=== PATIENT | female | born 1995 | race Caucasian/White ===

== ENCOUNTER 2016-09-08 00:10 | Emergency (ER) | payer BC, OTHER ==
--- NOTE | 2016-09-08 00:15 | PDOC ---
History of Present Illness - General History Source: Significant Other Exam Limitations: Clinical Condition, Unresponsive - History of Present Illness Initial Comments: 09/08/16 00:24 The patient is a 20 year old female with no significant past medical history who presents to the ED BIBA for unresponsiveness prior to arrival. As per significant other, patient was in her usual state of health prior to having dinner. He reports patient passed out while having dinner. Boyfriend denies drug use and states patient did not ingest anything. Allergies: NKDA Social History: Denies drug use. Past Surgical History: None reported <Lorenza Adame - Last Filed: 09/08/16 04:01> - General History Source: Significant Other <Saulo Curry - Last Filed: 09/08/16 06:08> - General Stated Complaint: SYNCOPE Time Seen by Provider: 09/08/16 00:15 Past History <Lorenza Adame - Last Filed: 09/08/16 04:01> - Immunization History Immunization Up to Date: Yes - Psycho/Social/Smoking Cessation Hx Anxiety: No Suicidal Ideation: No Smoking History: Never smoked Number of Cigarettes Smoked Daily: 3 Hx Alcohol Use: No Substance Use Type: None <Saulo Curry - Last Filed: 09/08/16 06:08> - Past Medical History Allergies/Adverse Reactions: Allergies Allergy/AdvReac Type Severity Reaction Status Date / Time No Known Allergies Allergy Verified 09/08/16 00:20 Home Medications: Ambulatory Orders Ondansetron [Zofran *Odt*] 4 mg SL TID #30 od.tablet 09/08/16 Tramadol HCl [Ultram -] 50 mg PO Q6H #20 tablet MDD 4 09/08/16 Review of Systems - Review of Systems Able to Perform ROS?: No Comments:: 09/08/16 00:25 Unable to obtain due to patients clinical condition <Lorenza Adame - Last Filed: 09/08/16 04:01> *Physical Exam - Vital Signs Last Vital Signs Temp Pulse Resp BP Pulse Ox 107 H 18 132/84 100 09/08/16 00:20 09/08/16 00:20 09/08/16 00:20 09/08/16 00:20 - Physical Exam Comments: 09/08/16 00:25 GENERAL: Well developed, well nourished. No acute distress. HEENT: Normocephalic, atraumatic. PERRLA, EOMI. No conjunctival pallor. Sclera are non- icteric. Moist mucous membranes. Oropharynx is clear. NECK: Supple. Full ROM. No JVD. Carotid pulses 2+ and symmetric, without bruits. No thyromegaly. No lymphadenopathy. CARDIOVASCULAR: Tachycardia. Regular rhythm. No murmurs, rubs, or gallops. Distal pulses are 2+ and symmetric. PULMONARY: No evidence of respiratory distress. Lungs clear to auscultation bilaterally. No wheezing, rales or rhonchi. ABDOMINAL: Soft. Non-tender. Non-distended. No rebound or guarding. No organomegaly. Normoactive bowel sounds. MUSCULOSKELETAL No bony deformities or tenderness. No CVA tenderness. EXTREMITIES: No cyanosis. No clubbing. No edema. No calf tenderness. SKIN: Warm and dry. Normal capillary refill. No rashes. No jaundice. NEUROLOGICAL: Pt is sonorous, but is responding to noxious stimuli. Pt is not following commands. PSYCHIATRIC: Pt is sonorous. <Lorenza Adame - Last Filed: 09/08/16 04:01> Heart Score/ECG Review - ECG Impressions Comment:: 09/08/16 00:25 Sinus tachycardia @107bpm Possible left atrial enlargement Borderline ECG <Lorenza Adame - Last Filed: 09/08/16 04:01> ED Treatment Course - LABORATORY CBC & Chemistry Diagram: 09/08/16 00:25 09/08/16 00:25 - RADIOLOGY Radiograph Interpretation: 09/08/16 04:01 EXAM: CT of the brain without contrast. Reviewed by Imaging wound care center consultant: There is no intra/extra-axial hemorrhage, vasogenic edema/focal mass effect or CT evidence of acute infarction; no ventriculomegaly. The visualized portions of the paranasal sinuses, orbits and tympanomastoid cavities are unremarkable. Impression: no hemorrhage, gross acute infarct or mass. EXAM: CT evaluation of the abdomen & pelvis without contrast. Reviewed by Imaging wound care center consultant: There is no gastrointestinal obstruction, pneumoperitoneum or gross free fluid. Grossly unremarkable bowel/appendix. Shotty mesenteric adenopathy. The solid organs, pancreas and adrenals are grossly unremarkable except for the presence of an uterine IUD; no hydronephrosis or cholelithiasis. Impression: no SBO. <Lorenza Adame - Last Filed: 09/08/16 04:01> - LABORATORY CBC & Chemistry Diagram: 09/08/16 00:25 09/08/16 00:25 <Saulo Curry - Last Filed: 09/08/16 06:08> Medical Decision Making - Medical Decision Making 09/08/16 00:55 Reassessment: Pt is answering questions slowly, but appropriately. Moving all extremities equally. Pt states she passed out at work. She now complains of nausea, generalized malaise and headache. <Lorenza Adame - Last Filed: 09/08/16 04:01> - Medical Decision Making 09/08/16 06:08 Dr. Curry: The scribe's documentation has been prepared under my direction and personally reviewed by me in its entirery. I confirm that the note above accurately reflects all work, treatment, procedures, and medical decision making performed by me. <Saulo Curry - Last Filed: 09/08/16 06:08> *DC/Admit/Observation/Transfer - Attestations Scribe Attestion: 09/08/16 00:26 Documentation prepared by Lorenza Adame, acting as medical photographer for Saulo Curry MD <Lorenza Adame - Last Filed: 09/08/16 04:01> - Discharge Dispostion Admit: No <Saulo Curry - Last Filed: 09/08/16 06:08> Diagnosis at time of Disposition: Fainting spell - Discharge Dispostion Disposition: HOME Condition at time of disposition: Stable - Prescriptions Prescriptions: Tramadol HCl [Ultram -] 50 mg PO Q6H #20 tablet MDD 4 Ondansetron [Zofran *Odt*] 4 mg SL TID #30 od.tablet - Patient Instructions Printed Discharge Instructions: DI for Syncope in Adults (Fainting) - Post Discharge Activity Work/School Note: Back to Work
[2016-09-08] MEDS ORDERED: SODIUM CHLORIDE 1,000 ML IV STA (00:17)
[2016-09-08 00:31] VITALS: BP 132/84; PULSE 107; BMI 27.4
[2016-09-08 00:38] LABS: BASOPHIL 0.9 % (0-2.0); EOSINOPHIL 1.8 % (0-4.5); MCH 28.7 pg (25.7-33.7); MCHC 32.2 g/dl (32.0-36.0); MEAN CELL VOLUME 89.3 fl (80-96); MEAN PLT VOLUME 10.9 fl (7.5-11.1); NEUTROPHILS 57.2 % (42.8-82.8); PLATELET COUNT 209 K/MM3 (134-434); RDW 15.1 % (11.6-15.6); WHITE BLOOD COUNT 9.3 K/mm3 (4.0-10.0)
[2016-09-08 00:51] LABS: INR 1.09 (0.82-1.09)
[2016-09-08 01:02] LABS: AMYLASE 25 U/L (25-115)
[2016-09-08 01:05] LABS: TROPONIN I < 0.02 ng/ml (0.00-0.05)
[2016-09-08 01:12] LABS: ALK PHOS 67 U/L (45-117); ANION GAP 12 (8-16); BILIRUBIN,TOTAL 0.4 mg/dL (0.2-1.0); CALCIUM 8.4 mg/dL (8.5-10.1); CO2 23 mmol/L (21-32); CREATININE 0.7 mg/dL (0.55-1.02); GLUCOSE,RANDOM 190 mg/dL (74-106); SGOT/AST 12 U/L (15-37); SGPT/ALT 19 U/L (12-78); TOT PROT 7.1 g/dl (6.4-8.2)
[2016-09-08 01:21] LABS: SALICYLATE < 4.0 mg/dl (0.0-30.0)
[2016-09-08] MEDS ORDERED: KETOROLAC TROMETHAMINE 30 MG/1 ML VIAL IVPUSH ONE (03:08)
[2016-09-08] MEDS ORDERED: ONDANSETRON 4 MG/2 ML VIAL IVPUSH STA (03:08)
[2016-09-08] MEDS ORDERED: ONDANSETRON 4 MG/2 ML VIAL ONE (03:14)
[2016-09-08] MEDS ORDERED: KETOROLAC TROMETHAMINE 30 MG/1 ML VIAL ONE (03:14)
[2016-09-08 03:39] LABS: URINE APPEARANCE CLEAR; URINE BILIRUBIN NEGATIVE (NEGATIVE); URINE BLOOD 3+ (NEGATIVE); URINE COLOR LT. YELLOW; URINE GLUCOSE (UA) NEGATIVE (NEGATIVE); URINE KETONE NEGATIVE (NEGATIVE); URINE LEUK ESTERASE NEGATIVE (NEGATIVE); URINE NITRITE NEGATIVE (NEGATIVE); URINE PROTEIN NEGATIVE (NEGATIVE); URINE UROBILINOGEN 0.2 E.U/dl E.U./dl (0.2-1.0)
[2016-09-08 03:44] LABS: URINE MUCUS RARE; URINE RBC 2 /hpf (0-3); URINE WBC 2 /hpf (3-5)
[2016-09-08 03:58] LABS: URINE MARIJUANA THC POSITIVE ng/ml (CUTOFF=50)
--- NOTE | 2016-09-08 15:37 | EKG ---
Test Reason : Blood Pressure : / mmHG Vent. Rate : 107 BPM Atrial Rate : 107 BPM P-R Int : 166 ms QRS Dur : 086 ms QT Int : 362 ms P-R-T Axes : 036 083 000 degrees QTc Int : 483 ms SINUS TACHYCARDIA POSSIBLE LEFT ATRIAL ENLARGEMENT BORDERLINE ECG NO PREVIOUS ECGS AVAILABLE Confirmed by NAN DAVIS, JACKELINE ([id number]) on 09/08/2016 3:37:23 PM Referred By: Confirmed By:JACKELINE MONTANA MD
== END 2016-09-08 04:09 | disposition home or self-care (01) ==
LOC: JER 00:10
PROC: 3E0337Z Introduction of Electrolytic and Water Balance Substance into Peripheral Vein, Percutaneous Approach (ICD-10-PCS; principal; 2016-09-08)
PROC: 3E0333Z Introduction of Anti-inflammatory into Peripheral Vein, Percutaneous Approach (ICD-10-PCS; 2016-09-08)
PROC: 3E033GC Introduction of Other Therapeutic Substance into Peripheral Vein, Percutaneous Approach (ICD-10-PCS; 2016-09-08)
DX: R55 Syncope and collapse (principal)
CPT/HCPCS: 36415; 70450-TC; 74176-TC; 80053; 80307; 81003; 81015; 82150; 82550; 83690; 83735; 84484; 84703; 85025; 85610; 86140; 86850; 86900; 86901; 93005; 93010; 99284-25